=== PATIENT | male | born 1960 | race Caucasian/White ===

== ENCOUNTER 2025-06-17 02:56 | Inpatient (IN) | payer BC ==
[2025-06-17] MEDS ORDERED: Heparin 25,000 UNITS/D5W 500 ml bag ONE (03:04)
[2025-06-17] MEDS ORDERED: Ondansetron PF 4 MG/2 ML Vial ONE (03:06)
[2025-06-17] MEDS ORDERED: Adenosine 6 mg (2 mL) VIAL ONE (03:06)
[2025-06-17] MEDS ORDERED: Heparin 10,000 UNITS/ 10 ML VIAL ONE ×2 (03:06→04:26)
[2025-06-17] MEDS ORDERED: EPINEPHrine 1 MG/10 ML Abboject SYRINGE ONE (03:06)
[2025-06-17] MEDS ORDERED: Lidocaine 1% (PF) 30 ML VIAL ONE (03:07)
[2025-06-17] MEDS ORDERED: PHENYLEPHRINE-NS 100 MCG/ML 10 ML SYRINGE ONE (03:07)
[2025-06-17] MEDS ORDERED: Nitroglycerin 50 MG/250 ML BOT 250 ML ONE (03:07)
[2025-06-17 03:11] LABS: #Basophils 0.04 10x3/uL (0.0-0.2); #Eosinophils 0.21 10x3/uL (0.0-0.7); #Monocytes 0.68 10x3/uL (0.11-0.59); #Neutrophils 5.49 10x3/uL (1.40-6.50); %Basophils 0.4 % (0.0-1.0); %Eosinophils 2.2 % (0.0-10.0); %Lymphocytes 31.5 % (21.0-51.0); %Monocytes 7.2 % (0.0-10.0); %Neutrophils 58.5 % (42.0-75.0); Hematocrit 40.8 % (42.0-52.0); Hemoglobin 13.3 g/dL (14.0-18.0); Mean Corpuscular Hemoglobin 30.0 pg (27.0-31.0); Mean Corpuscular Volume 92.1 fL (78.0-98.0); Platelet Count 272 10x3/uL (130-400); Red Blood Cell (RBC) Count 4.43 mill/uL (4.70-6.10); White Blood Cell (WBC) Count 9.40 10x3/uL (4.8-10.8)
[2025-06-17 03:28] LABS: ALT (SGPT) 16 U/L (Less than 45); AST (SGOT) 19 U/L (11-34); Albumin 3.7 g/dL (3.1-4.5); Alkaline Phosphatase 56 U/L (40-110); Anion Gap 14 mmol/L (10-20); BUN (Urea Nitrogen) 20 mg/dL (8.4-25.7); Bilirubin, Total 0.2 mg/dL (0.3-1.2); Calc. Creatinine Clearance 0 mL/min (70-130); Calcium 8.9 mg/dL (7.8-10.44); Carbon Dioxide 25 mmol/L (23-31); Chloride 105 mmol/L (98-107); Globulin 3.1 g/dL (2.4-3.5); Glucose 152 mg/dL (80-115); Potassium 3.3 mmol/L (3.5-5.1); Sodium 141 mmol/L (136-145)
[2025-06-17 03:39] LABS: INR-International Normal Ratio 1.2; Prothrombin Time 15.3 sec (12.0-14.7)
[2025-06-17 03:40] LABS: PTT 112.8 sec (22.9-36.1)
[2025-06-17] MEDS ORDERED: TICAGRELOR 90 MG TABLET ONE (04:36)
[2025-06-17 05:54] VITALS: BMI 35.2
[2025-06-17] MEDS ORDERED: Milk Of Magnesia 30 ML UDCUP PO PRN (05:59)
[2025-06-17 06:25] LABS: Cardiac Risk 4.8 (Less than 4.5); Cholesterol 177.0 mg/dl (< 200 Desired); HDL Cholesterol 37.0 mg/dL (>60 Neg Risk); LDL Cholesterol, Calculated 116.0 mg/dL; Triglycerides 118.0 mg/dL (Less than 150)
[2025-06-17] MEDS: Potassium Chloride 20 MEQ in Premix 1 BAG IVPB SCH (06:33)
[2025-06-17] MEDS: Aspirin Chewable 81 MG TAB PO SCH (08:56)
[2025-06-17] MEDS ORDERED: Iopamidol 370 76% 100 ML VIAL ONE (11:46)
[2025-06-17] MEDS: FLU (Fluarix Triv) 25-26 (6MOS UP)/PF 45 MCG/0.5 ML Syringe IM ONE (13:13)
[2025-06-17] MEDS: Acetaminophen 325 MG TAB PO PRN (15:07)
[2025-06-17] MEDS: TICAGRELOR 90 MG TABLET PO SCH (20:04)
[2025-06-18] MEDS ORDERED: B12 PO SCH (09:00)
[2025-06-18] MEDS ORDERED: [UNRECOGNIZED DRUG - OTHER] PO SCH (09:00)
[2025-06-18] MEDS ORDERED: FOLIC PO SCH (09:00)
[2025-06-18] MEDS ORDERED: COFFEE PO SCH (09:00)
[2025-06-18] MEDS ORDERED: B6 PO SCH (09:00)
[2025-06-18] MEDS: Multivit, Therapeutic 1 TAB PO SCH (09:52)
[2025-06-18 10:15] LABS: #Basophils Less than 0.03 10x3/uL (0.0-0.2); #Eosinophils 0.06 10x3/uL (0.0-0.7); #Monocytes 0.60 10x3/uL (0.11-0.59); #Neutrophils 6.51 10x3/uL (1.40-6.50); %Basophils 0.1 % (0.0-1.0); %Eosinophils 0.7 % (0.0-10.0); %Lymphocytes 16.6 % (21.0-51.0); %Monocytes 6.9 % (0.0-10.0); %Neutrophils 75.4 % (42.0-75.0); Hematocrit 40.4 % (42.0-52.0); Hemoglobin 12.8 g/dL (14.0-18.0); Mean Corpuscular Hemoglobin 29.8 pg (27.0-31.0); Mean Corpuscular Volume 94.2 fL (78.0-98.0); Platelet Count 264 10x3/uL (130-400); Red Blood Cell (RBC) Count 4.29 mill/uL (4.70-6.10); White Blood Cell (WBC) Count 8.64 10x3/uL (4.8-10.8)
[2025-06-18 11:06] LABS: ALT (SGPT) 27 U/L (Less than 45); AST (SGOT) 87 U/L (11-34); Albumin 3.8 g/dL (3.1-4.5); Alkaline Phosphatase 56 U/L (40-110); Anion Gap 13 mmol/L (10-20); BUN (Urea Nitrogen) 11 mg/dL (8.4-25.7); Bilirubin, Total 0.4 mg/dL (0.3-1.2); Calc. Creatinine Clearance 182 mL/min (70-130); Calcium 8.9 mg/dL (7.8-10.44); Carbon Dioxide 26 mmol/L (23-31); Chloride 106 mmol/L (98-107); Globulin 3.2 g/dL (2.4-3.5); Glucose 100 mg/dL (80-115); Potassium 4.1 mmol/L (3.5-5.1); Sodium 141 mmol/L (136-145)
[2025-06-18] MEDS ORDERED: Iopamidol-370 76% 500 ML MDV (1 ML CHARGE) ONE (12:06)
[2025-06-19 05:27] LABS: #Basophils 0.03 10x3/uL (0.0-0.2); #Eosinophils 0.14 10x3/uL (0.0-0.7); #Monocytes 0.60 10x3/uL (0.11-0.59); #Neutrophils 5.17 10x3/uL (1.40-6.50); %Basophils 0.4 % (0.0-1.0); %Eosinophils 1.9 % (0.0-10.0); %Lymphocytes 21.1 % (21.0-51.0); %Monocytes 7.9 % (0.0-10.0); %Neutrophils 68.4 % (42.0-75.0); Hematocrit 37.3 % (42.0-52.0); Hemoglobin 11.8 g/dL (14.0-18.0); Mean Corpuscular Hemoglobin 29.9 pg (27.0-31.0); Mean Corpuscular Volume 94.7 fL (78.0-98.0); Platelet Count 230 10x3/uL (130-400); Red Blood Cell (RBC) Count 3.94 mill/uL (4.70-6.10); White Blood Cell (WBC) Count 7.55 10x3/uL (4.8-10.8)
[2025-06-19 05:56] LABS: Anion Gap 12 mmol/L (10-20); BUN (Urea Nitrogen) 12 mg/dL (8.4-25.7); Calc. Creatinine Clearance 147 mL/min (70-130); Calcium 8.4 mg/dL (7.8-10.44); Carbon Dioxide 24 mmol/L (23-31); Chloride 107 mmol/L (98-107); Glucose 109 mg/dL (80-115); Potassium 3.9 mmol/L (3.5-5.1); Sodium 139 mmol/L (136-145)
[2025-06-19] MEDS: Losartan 25 MG TAB PO SCH (09:23)
[2025-06-19 12:01] VITALS: TEMP 97.8
[2025-06-19 13:07] VITALS: BP 153/72
== END 2025-06-19 12:15 | disposition home or self-care (01) | DRG 322 ==
LOC: ERS 02:56 → CCL 03:24 → CCU 05:53 → 2NO 06-18 20:31
PROVIDERS: ADMIT Internal Medicine Cardiovascular Disease; ATTEND Internal Medicine Cardiovascular Disease
PROC: 02703DZ Dilation of Coronary Artery, One Artery with Intraluminal Device, Percutaneous Approach (ICD-10-PCS; principal; 2025-06-17)
PROC: 4A023N7 Measurement of Cardiac Sampling and Pressure, Left Heart, Percutaneous Approach (ICD-10-PCS; 2025-06-17)
PROC: 5A09357 Assistance with Respiratory Ventilation, Less than 24 Consecutive Hours, Continuous Positive Airway Pressure (ICD-10-PCS; 2025-06-18)
DX: I21.19 ST elevation (STEMI) myocardial infarction involving other coronary artery of inferior wall (principal); I10 Essential (primary) hypertension; E78.5 Hyperlipidemia, unspecified; R33.8 Other retention of urine; I25.10 Atherosclerotic heart disease of native coronary artery without angina pectoris; G47.33 Obstructive sleep apnea (adult) (pediatric); E87.6 Hypokalemia; E66.9 Obesity, unspecified; Z79.899 Other long term (current) drug therapy
CPT/HCPCS: 36415; 71045; 75635; 80048; 80053; 80061; 83695; 84484; 85025; 85347; 85610; 85730; 86850; 86900; 86901; 92941; 92978; 93005; 93010; 93306; 93458; 93798; 94760; 96365; 99152; 99153; C1725; C1753; C1769; C1874; C1887; C1894; C1984; C9606; J0153; J0165; J0282; J0461; J1265; J1644; J2003; J2250; J2270; J2405; J3010; J3480; J7030; Q9967